=== PATIENT | male | born 1990 | race Asian ===

== ENCOUNTER 2016-07-28 19:55 | Emergency (ER) | payer OTHER ==
[2016-07-28 20:10] VITALS: BP 148/87
[2016-07-28] MEDS ORDERED: Ibuprofen TAB* 600 MG PO ONE (20:13)
--- NOTE | 2016-07-28 20:49 | RAD ---
INDICATION: Traumatic fracture left second digit COMPARISON: None TECHNIQUE: AP, lateral, and oblique views were obtained. FINDINGS: There is a comminuted, minimally displaced fracture of the distal aspect of the middle phalanx with intra-articular extension. There are no other fractures. There is associated soft tissue injury. IMPRESSION: INTRA-ARTICULAR FRACTURE OF THE MIDDLE PHALANX OF THE LEFT SECOND DIGIT.
[2016-07-28] MEDS ORDERED: ceFAZolin 500 MG VIAL(*) 500 MG VIAL IM ONE (21:05)
[2016-07-28] MEDS ORDERED: Bupivacaine 0.25% SDV* 30 ML ONE (21:06)
[2016-07-28] MEDS ORDERED: Sodium Bicarbonate 8.4% IV* 50 ML VIAL ONE (21:07)
[2016-07-28] MEDS ORDERED: Lidocaine 2% PF * 5 ML VIAL ONE (21:07)
[2016-07-28] MEDS ORDERED: Lidocaine 1% MPF* 2 ML VIAL ONE (21:10)
--- NOTE | 2016-07-28 21:15 | UC ---
Laceration HPI - HPI Summary HPI Summary: 26 yo male with crush/hyperstension injury to left index finger while working with wts was deformed and he straightened it He is right handed - History Of Current Complaint Chief Complaint: UCUpperExtremity Stated Complaint: FINGER INJURY Time Seen by Provider: 07/28/16 20:13 Hx Obtained From: Patient Laceration Location: Finger - left index Mechanism Of Injury: Blunt Trauma Onset/Duration: Sudden Onset, Lasting Hours Severity: Severe Pain Intensity: 8 Pain Scale Used: 0-10 Numeric Aggravating Factors: Movement Related History: Dominant Hand Right - Allergies/Home Medications Allergies/Adverse Reactions: Allergies Allergy/AdvReac Type Severity Reaction Status Date / Time No Known Allergies Allergy Verified 07/28/16 20:04 PMH/Surg Hx/FS Hx/Imm Hx Previously Healthy: Yes - Surgical History Surgical History: None - Family History Known Family History: Negative: Hypertension, Diabetes - Social History Alcohol Use: Occasionally Substance Use Type: None Smoking Status (MU): Never Smoked Tobacco Review of Systems Constitutional: Negative Skin: Negative Eyes: Negative ENT: Negative Respiratory: Negative Cardiovascular: Negative Gastrointestinal: Negative Genitourinary: Negative Motor: Negative Neurovascular: Negative Musculoskeletal: Arthralgia Neurological: Negative Psychological: Negative All Other Systems Reviewed And Are Negative: Yes Physical Exam Triage Information Reviewed: Yes Appearance: Well-Appearing, No Pain Distress Vital Signs: Initial Vital Signs Temp 97.5 F 07/28/16 20:04 Pulse 87 07/28/16 20:04 Resp 18 07/28/16 20:04 BP 148/87 07/28/16 20:04 Pulse Ox 99 07/28/16 20:04 Eyes: Positive: Conjunctiva Clear ENT: Positive: Hearing grossly normal Neck: Positive: Supple Respiratory: Positive: Lungs clear, Normal breath sounds, No respiratory distress, No accessory muscle use Cardiovascular: Positive: RRR, No Murmur Musculoskeletal Exam: Normal Musculoskeletal: Positive: ROM Limited @ Neurological: Positive: Alert Psychological Exam: Normal Skin Exam: Other - see image Laceration Repair - Laceration Repair 1 Description: Joint Proximity Laceration Size After Repair: Length (cm) - 2.5 CM, Width (mm) - 3, Depth (mm) - 3 Debridement: MINIMAL Modified For Repair: Yes Anesthesia Used: 2.0% Lido, 0.25% Marcaine Additive Used (in ml): Bicarb Cleansing Completed Via Routine Prep: Yes Irrigation With Pressure Irrigation Device: Yes Closure Method: Single Layer Suture Of: Skin Suture Type: Nylon - 8 5-0 NYLON Laceration Course/Dx - Course/Dx Course Of Treatment: LEFT 2/3 DIGITS RUBI TAPE. DORSAL SPLINT APPLIED 2 INCH ORTHOGLASS - Differential Dx - Laceration/Wound Provider Diagnoses: OPEN FRACTURE OF LEFT INDEX FINGER DISTAL MIDDLE PHALANX WITH ARTICULAR INVOLVEMENT - Physician Notification/Consults Discussed Patient Care With: Dr. Cormier- sherif f/u with one of the hand specialists in his group on Sunday Discharge - Discharge Plan Condition: Stable Disposition: HOME Prescriptions: Cephalexin CAP* [Keflex CAP*] 500 mg PO QID #28 cap HYDROcodone/ACETAMIN 5-325 MG* [Hensley 5-325 TAB*] 1 tab PO Q4H PRN #15 tab MDD 6 PRN Reason: Pain - Severe Ibuprofen TAB* [Motrin TAB*] 600 mg PO QID PRN #40 tab PRN Reason: Pain Patient Education Materials: Finger Fracture (ED) Referrals: Juan Cormier MD [Medical Doctor] - 3 Days (CALL SUNDAY AM AND ASK TO BE SEEN BY ONE OF THE HAND SPECIALISTS (DR. FIELD OR SAMIR)) Additional Instructions: YOU HAVE AN OPEN FRACTURE OF YOUR LEFT MIDDLE FINGER IT NEEDS TO BE TAKEN CARE OF BY A HAND SPECIALIST YOU NEED TO BE TAKING ANTIBIOTICS ELEVATE ELEVATE ELEVATE motrin narcotic for severe pain will cause drowsiness ...don't take and drive or work Images Hands: 1 - lac
[2016-07-28] MEDS ORDERED: HYDROcodone/ACETAMIN 5-325 MG* 1 TAB PO ONE (22:18)
== END 2016-07-28 22:43 | disposition home or self-care (01) ==
LOC: UCEAST 19:55
DX: S62.621B Displaced fracture of middle phalanx of left index finger, initial encounter for open fracture (principal); W23.0XXA Caught, crushed, jammed, or pinched between moving objects, initial encounter; Y93.B3 Activity, free weights; Y92.89 Other specified places as the place of occurrence of the external cause
CPT/HCPCS: 12041; 73140; 96372; 99203; A9270-GY; G0463; J0690

== ENCOUNTER → 2016-08-01 12:10 | Day surgery (SDC) | payer OTHER ==
--- NOTE | 2016-07-31 20:59 | HP ---
PREOPERATIVE HISTORY AND PHYSICAL: DATE OF SURGERY/ADMISSION: 08/01/16 [facility] DATE OF OFFICE VISIT/ENCOUNTER: 07/31/16 ATTENDING SURGEON: Sandra Olivier MD PROCEDURE: Left index finger closed/possible open reduction internal fixation. CHIEF COMPLAINT: Left index finger fracture. 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 He was lifting weights and doing a squat with a heavy bar with 225 pounds on it when he lost his balance and weight fell crushing his left index finger. He was initially seen at [facility] and had the wound attended to, sutures placed , and referred to Dr. Olivier for further evaluation and treatment considerations. The patient was placed on Keflex. He is using [place] and ibuprofen for pain. This is his nondominant hand. X-rays taken at [facility] show a displaced comminuted fracture of the middle phalanx, articular surface of the DIP joint of the left index finger. After review of films and the patient's finger, Dr. Olivier is recommending surgical intervention for best outcome and the patient has consented to proceed. PAST MEDICAL HISTORY: Eczema. PAST SURGICAL HISTORY: None. MEDICATIONS: None. ALLERGIES: No known drug allergies. FAMILY MEDICAL HISTORY: Noncontributory. 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 He denies tobacco and recreational drug use. He admits to alcohol use on occasion. REVIEW OF SYSTEMS: General: Negative for fevers, chills, or night sweats. No known anesthesia problems. HEENT: Negative for headache, lightheadedness, or syncopal episodes. Integumentary: Negative for abrasions, lesions, or open wounds. Cardiothoracic: Negative for chest pain, palpitations, or edema. Negative for hypertension. Pulmonary: Negative for shortness of breath with exertion, chronic cough, COPD. GI: Negative for nausea, vomiting, diarrhea, constipation, or GERD. : Negative for nocturia, urinary frequency, urgency, history of UTIs, or kidney problems. Musculoskeletal: Positive for current complaint. Negative for chronic or intermittent back pain or history of fractures. Neurological: Negative for paresthesias, numbness, history of seizure, stroke, or epilepsy. Endocrine: Negative for diabetes or thyroid issues. Hematologic: Negative for easy bruising, anemia, excessive bleeding, or history of DVT. Infectious Disease: Negative for history of MRSA, hepatitis C, or HIV. PHYSICAL EXAMINATION GENERAL: Well-developed, well nourished, 26-year-old male, in no acute distress. VITAL SIGNS: Height 6 feet 1 inches, weight 225 pounds, pulse rate 76, blood pressure 122/70. HEENT: Normocephalic, atraumatic. Pupils are equal, round, and reactive to light and accommodation. Extraocular movements are intact. NECK: Supple. No palpable lymph nodes. Throat is clear. PULMONARY: Lungs are clear to auscultation bilaterally. No wheezes, rales, or rhonchi. CARDIOTHORACIC: Regular rate and rhythm. S1 and S2. No murmurs, rubs, or gallops. No edema. ABDOMEN: Positive bowel sounds, soft, nontender. NEUROLOGICAL: Alert and oriented x3. Cranial nerves II through X11 were intact. Sensation is intact to light touch. MUSCULOSKELETAL: On exam of the left upper extremity/left hand, the index finger has a laceration, which is longitudinal on the volar surface of the index finger. It is clean. There is no sign of infection. There is no drainage or erythema. He has active flexion of the PIP and DIP joints and neurovascular function is intact. IMAGING STUDIES: X-rays of the left index finger shows an articular fracture of the middle phalanx at the DIP joint with displacement. IMPRESSION: Left index finger DIP fracture. PLAN: The patient is scheduled to undergo a left index finger closed/possible open reduction, pinning of the left index finger middle phalanx fracture with Dr. Olivier on 08/01/16. He will return to the office in 10 to 14 days postoperative for followup and suture removal. A prescription for Safety [place] was e- scribed to the patient's pharmacy for postoperative pain management. CINTHYA CEE [id number]/CPS #: [id number] MTDD
[~2016-08-01 12:10] MED LIST: Buffered Lidocaine 1% SYR 3ML* 3 ML/SYR SYRINGE INTRADERM ONE; Buffered Lidocaine 1% SYR 3ML* 3 ML/SYR SYRINGE ONE; Lidocaine 1% INJ* 10 MG/ML 30 ML SDV ONE; Midazolam* 1 MG/ML 5 ML VIAL (5 MG) ONE; ceFAZolin 2 GM PREMIX (*) 2 GM/50 ML BAG IVPB ONE; fentaNYL* 50 MCG/ML 2 ML VIAL (100 MCG VIAL) ONE
[2016-08-01 16:24] VITALS: BP 139/71
--- NOTE | 2016-08-02 03:57 | OP ---
DATE OF OPERATION: 08/01/16 - [facility] DATE OF : 86 SURGEON: Sandra Olivier MD LEARNING TECHNOLOGIES SPECIALIST: CINTHYA Contreras ANESTHESIOLOGIST: Cooper Lorenzo DO ANESTHESIA: Local MAC. PRE-OP DIAGNOSIS: Left index finger middle phalanx fracture, intraarticular, and displaced. POST-OP DIAGNOSIS: Left index finger middle phalanx fracture, intraarticular, and displaced. OPERATIVE PROCEDURE: Closed reduction and percutaneous pinning, left index finger. ESTIMATED BLOOD LOSS: Zero. TOURNIQUET TIME: About 20 minutes. INDICATION FOR PROCEDURE: Francois is a 26-year-old male who injured his left index finger weightlifting. He suffered an open fracture of his middle phalanx. The wound was sutured and he has had displaced intraarticular fracture of the middle phalanx at the DIP joint. He presents for closed reduction, pinning, possible open reduction. DESCRIPTION OF PROCEDURE: The patient was brought to the operating room, was given a sedation anesthetic, and a digital block with 10 cc of 1% plain lidocaine. The skin of his left upper extremity was prepped and draped in the usual sterile fashion. The hand and forearm were exsanguinated and the tourniquet elevated to 250 mmHg. A towel clip was used used to reduce the articular fragments and the articular surface was perfectly reduced and two 0.035 inch K-wires were driven from one condyle into the other. Next, the condyles were reduced to the shaft and secured with a dorsal pin. The position of the hardware and fracture fragments were checked on the C-arm and the AP and lateral views and found to be satisfactory. The pins were cut and dressed with Xeroform, 4x4, Webril, and an Alumafoam splint. The patient tolerated the procedure well and was brought to the recovery room in good condition. [id number]/[facility] #: [id number] MTDSanta
--- NOTE | 2016-08-02 11:52 | RAD ---
INDICATION: Left index finger, pain, trauma of the second digit of left hand COMPARISONS: July 28, 2016 TECHNIQUE: Fluoroscopy was provided for a surgical procedure. Total fluoroscopy time is: 3 minutes, 3 seconds FINDINGS: Spot images demonstrate internal fixation of the middle phalanx of the second digit of the left hand IMPRESSION: FLUOROSCOPY WAS PROVIDED FOR A SURGICAL PROCEDURE CPT II Codes: 6045F
== END | disposition home or self-care (01) ==
LOC: OREAST 12:10
PROVIDERS: ATTEND Orthopaedic Surgery
DX: S62.621A Displaced fracture of middle phalanx of left index finger, initial encounter for closed fracture (principal); W20.8XXA Other cause of strike by thrown, projected or falling object, initial encounter; Y93.79 Activity, other specified sports and athletics; Y92.39 Other specified sports and athletic area as the place of occurrence of the external cause
CPT/HCPCS: 76000; C1776; J0690; J2250; J3010

== ENCOUNTER 2016-11-11 10:48 | Emergency (ER) | payer OTHER ==
[2016-11-11] MEDS ORDERED: Meclizine TAB* 12.5 MG PO ONE (12:10)
[2016-11-11] MEDS ORDERED: NS 0.9% 1000 ML* 1,000 ML IV ONE (12:10)
[2016-11-11] MEDS ORDERED: Ondansetron INJ* 2 MG/ML VIAL IV ONE (12:10)
--- NOTE | 2016-11-11 12:36 | RAD ---
INDICATION: Vertigo. COMPARISON: There are no prior studies available for comparison. TECHNIQUE: Contiguous axial sections of the brain were obtained from the skull base to the vertex without contrast. FINDINGS: The ventricles, cisterns and sulci are within normal limits. There is a small 4 mm cyst present in the superior portion of the right cerebellar hemisphere. No significant focal abnormality or mass effect is seen. There is no evidence for hemorrhage. No significant focal osseous abnormality is seen. The visualized portion of the paranasal sinuses and mastoid air cells appear clear. IMPRESSION: NO EVIDENCE FOR GROSS ACUTE INFARCT, MASS EFFECT OR HEMORRHAGE.
[2016-11-11 12:54] LABS: Hematocrit 43 % (42-52); Hemoglobin 14.2 g/dl (14.0-18.0); Mean Corpuscular HGB Conc 33 g/dl (31-36); Mean Corpuscular Hemoglobin 28 pg (27-31); Mean Corpuscular Volume 86 fL (80-94); Mean Platelet Volume 9 um3 (7.4-10.4); Red Blood Count 5.05 10^6/ul (4.0-5.4); Red Cell Distribution Width 13 % (10.5-15); White Blood Count 5.8 10^3/ul (3.5-10.8)
[2016-11-11 13:07] LABS: Albumin 4.3 g/dL (3.2-5.2); BUN/Creatinine Ratio 20.8 (8-20); Calcium 9.1 mg/dL (8.6-10.3); EGFR African American 113.1 (>60); Globulin 3.2 g/dL (2-4); Potassium 4.1 mmol/L (3.5-5.0); Total Bilirubin 0.7 mg/dL (0.2-1.0); Total Protein 7.5 g/dL (6.4-8.9)
[2016-11-11 14:41] VITALS: BP 127/77
--- NOTE | 2016-11-12 14:34 | ED ---
Jessica Berrios SooYoung, scribed for Liborio Brandon MD on 11/11/16 at 1127 . Dizziness - HPI Summary HPI Summary: A 26 y/o M presents to ED with c/o vertigo-like sx onset this AM. He states he woke up at 830 and the room felt like it was rotating. The rotating sensation resolved, but he still feels dizzy when he moves his head too quickly. He also states he feels like his heart races when he moves his head too quickly. Associated sx: rhinorrhea, nausea. Denies: recent head trauma, vomiting, ear pain, BUSCH, cough. Denies EtOH, drug use yesterday. Took Tylenol this AM. Similar sx several years ago after having a fever. - History Of Current Complaint Chief Complaint: EDDizziness Stated Complaint: DIZZY Time Seen by Provider: 11/11/16 11:12 Hx Obtained From: Patient Onset/Duration: Still Present Timing: Constant Character: Room Spinning Aggravating Factor(s): Change In Head Position Associated Signs And Symptoms: Positive: Nausea, Palpitations - heart racing, Other: - pos: rhinorrhea; neg: ear pain, BUSCH, cough, hed trauma. Negative: Vomiting - Allergies/Home Medications Allergies/Adverse Reactions: Allergies Allergy/AdvReac Type Severity Reaction Status Date / Time No Known Allergies Allergy Verified 08/01/16 12:26 PMH/Surg Hx/FS Hx/Imm Hx Previously Healthy: Yes Sensory History: Reports: Hx Contacts or Glasses - GLASSES Opthamlomology History: Reports: Hx Contacts or Glasses - GLASSES - Surgical History Hx Anesthesia Reactions: No Infectious Disease History: Denies: Traveled Outside the [place] in Last 30 Days - Family History Known Family History: Positive: Other - neg: stroke Negative: Hypertension, Diabetes - Social History Occupation: Student Lives: Alone Alcohol Use: Occasionally Alcohol Amount: 1-2 DRNKS /WEEK Hx Substance Use: No Substance Use Type: Reports: None Hx Tobacco Use: No Smoking Status (MU): Never Smoked Tobacco Have You Smoked in the Last Year: No Review of Systems Negative: Fever, Chills Negative: Erythema Positive: Nasal Discharge - rhinorrhea. Negative: Sore Throat, Ear Ache Positive: Palpitations. Negative: Chest Pain Negative: Shortness Of Breath, Cough Positive: Nausea. Negative: Abdominal Pain, Vomiting Negative: dysuria, hematuria Negative: Myalgia, Edema Negative: Rash Neurological: Other - pos: dizziness Negative: Headache All Other Systems Reviewed And Are Negative: Yes Physical Exam - Summary Physical Exam Summary: Constitutional: Well-developed, Well-nourished, Alert. (-) Distressed Skin: Warm, Dry HENT: Eyes: Conjunctiva normal Neck: Musculoskeletal ROM normal neck. (-) JVD, (-) Stridor, (-) Tracheal deviation Cardio: Rhythm regular, rate normal, Heart sounds normal; Intact distal pulses; The pedal pulses are 2+ and symmetric. Radial pulses are 2+ and symmetric. (-) Murmur Pulmonary/Chest wall: Effort normal. (-) Respiratory distress, (-) Wheezes, (-) Rales Abd: Soft. (-) Tenderness, (-) Distension, (-) Guarding, (-) Rebound Musculoskeletal: (-) Edema Lymph: (-) Cervical adenopathy Neuro: Alert, Oriented x3, Strength normal, Cranial nerves II-XII are grossly intact. (-) Dysmetria, (-) Nystagmus, (-) Ataxia by finger to nose testing, (-) Sensory deficit. CHRISTAL-HALLPIKE MANEUVER TO RIGHT PRODUCES SX; NO OBVIOUS NYSTAGMUS. Psych: Mood and affect Normal Triage Information Reviewed: Yes Vital Signs On Initial Exam: Initial Vitals Temp Pulse Resp BP Pulse Ox 98.7 F 69 18 139/87 100 11/11/16 10:52 11/11/16 10:52 11/11/16 10:52 11/11/16 10:52 11/11/16 10:52 Vital Signs Reviewed: Yes Diagnostics - Vital Signs Vital Signs Temp Pulse Resp BP Pulse Ox 11/11/16 10:52 98.7 F 69 18 139/87 100 - Laboratory Result Diagrams: 11/11/16 12:40 11/11/16 12:40 Lab Statement: Any lab studies that have been ordered have been reviewed, and results considered in the medical decision making process. - CT BRAIN CT Interpretation: No Acute Changes - IMPRESSION: No evidence for gross acute infarct, mass effect, or hemorrhage. CT Interpretation Completed By: Radiologist Re-Evaluation - Re-Evaluation 1 Re-Evaluation Time: 14:34 Change: Improved Comment: Ambulated pt, has a steady gait. Dizzy Course/Dx - Course Course Of Treatment: Pt is a 26 y/o M presenting with room-spinning onset this AM when he woke up. Aggravating factors: rapid head movement. Associated sx: heart racing, rhinorrhea, nausea. Denies: recent head trauma, vomiting, ear pain , BUSCH, cough, EtOH, drug use. Took Tylenol this AM. Similar sx several years ago after having a fever. Denies FHx: CVA/TIA. Pt given fluids, ativan and zofran in ED. Upon PE, Christal-Hallpike manuever produced sx on the right, no obvious nystagmus. Brain CT is negative. [facility] [place] on Sunday. - Diagnoses Provider Diagnoses: Dehydration, Positional vertigo Discharge - Discharge Plan Condition: Stable Disposition: HOME Prescriptions: Meclizine TAB* [Antivert 12.5 TAB*] 25 mg PO TID PRN #12 tab PRN Reason: Vertigo Meclizine TAB* [Antivert 12.5 TAB*] 25 mg PO TID #12 tab Patient Education Materials: Meclizine (By mouth), Dehydration (ED), Benign Paroxysmal Positional Vertigo (ED) Referrals: [facility] [Primary Care Provider] - Additional Instructions: Follow up at [place] / [facility] on Sunday. Return to the emergency department for changing or worsening symptoms. The documentation as recorded by the Jessica aquino SooYoung accurately reflects the service I personally performed and the decisions made by , Liborio Brandon MD.
== END 2016-11-11 14:45 | disposition home or self-care (01) ==
LOC: ED 10:48
DX: R42 Dizziness and giddiness (principal); E86.0 Dehydration
CPT/HCPCS: 36415; 70450; 80053; 85027; 96360; 96374; 99283; A9270-GY; J2405